=== PATIENT | female | born 1995 | race Hispanic/Latino ===

== ENCOUNTER 2025-03-16 20:40 | Emergency (ER) | payer OTHER ==
[~2025-03-16] VITALS: Ht 162.6 cm; Wt 108.9 kg
--- NOTE | 2025-03-16 20:51 | NUR ---
UA CUP PROVIDED
--- NOTE | 2025-03-16 20:55 | NUR ---
UA COLLECTED AND SENT
--- NOTE | 2025-03-16 21:24 | NUR ---
REPORT TO MITUL DELCID
--- NOTE | 2025-03-16 21:27 | NUR ---
PT PLACED IN GOWN ORIENTED TO ROOM, CALL LIGHT WITHIN REACH
[2025-03-16 21:32] LABS: IMMATURE GRANULOCYTE ABSOLUTE 0.04 K/uL (0-1); NUCLEATED RED BLOOD CELLS 0.0 % (0.0-0.19); PLATELET COUNT (AUTO) 257 K/uL (130-400); RED BLOOD CELL COUNT(AUTO) 3.98 MIL/uL (4.00-5.50); RED CELL DISTRIBUTION WIDTH 12.8 % (11.0-15.5); WHITE BLOOD COUNT (AUTO) 8.8 K/uL (4.8-10.8)
[2025-03-16 21:41] LABS: CREATININE 0.6 mg/dL (0.5-1.0); GLOMERULAR FILTR. RATE CALC 125.0 mL/min (>90); GLUCOSE,RANDOM 106.0 mg/dL (70-105); SODIUM SERUM 136.0 mmol/L (136-145); UREA NITROGEN, BLOOD 9.0 mg/dL (7-18)
--- NOTE | 2025-03-16 21:50 | ERN ---
ED Note History of Present Illness Stated Complaint: ABSCESS Chief Complaint: Abscess Time Seen by MD: 20:49 Dictation: This is a 29-year-old morbidly obese female who presented to the emergency room complaining of a boil on her vulva on the right side. She stated that she began noticing this 2 days ago and today she began experiencing severe pain after the boil popped. No fever chills or rigors. No known history of diabetes. Temperature 98.5 pulse 79 respirations 20 blood pressure 124/70 with a pulse oximetry of 100% on room air BMI 41 Allergies: Coded Allergies: No Known Allergies (Unverified Allergy, Unknown, 03/16/25) Home Meds Active Scripts Clindamycin HCl (Clindamycin HCl) 300 Mg Capsule, 1 CAP PO TID for 10 Days, #30 CAP 0 Refills Prov:PATRICIA AGUILAR MD 03/16/25 Past Medical History Past Medical History: No Pertinent History Surgical History: Appendectomy, BTL Family History: Negative Social History: Negative LMP: Feb 20, 2025 RN Note Reviewed/Agreed w/PFSH: Yes Review of System Dictation Constitutional: Negative for fever,chills, and weight loss Eyes: Negative for injury, pain,redness, and discharge ENT: Negative for injury,pain or swelling Cardiovascular: Negative for chest pain, palpitations, and edema Respiratory: Negative for shortness of breath, cough, and wheezing, Abdomen/GI: Negative for abdominal pain, nausea, vomiting, diarrhea, and constipation Back: Negative for injury and pain : Negative for injury, bleeding and discharge positive for a boil on the right side of the vulva on labia majora with the drainage and bleeding MS/Extremity: Negative for injury and deformity Skin: Negative for rash, and discoloration Neuro: Negative for headache, weakness, numbness, tingling, and seizure Psych: Negative for suicide ideation, homicidal ideation, and hallucinations Initial Vital Sign VS Vital Signs Date Time Temp Pulse Resp B/P (MAP) Pulse Ox O2 Delivery O2 Flow Rate FiO2 03/16/25 20:48 98.4 79 20 124/70 100 Room Air 03/16/25 21:38 0 21 Physical Exam Dictation General: awake, alert, NAD morbidly obese Head/Face: Normocephalic, atraumatic Eyes: PERRL, EOMI, vision at baseline ENT: oral cavity clear, TMs clear, no signs of infection Neck: Trachea midline, supple, no nuchal rigidity Cardiovascular: RRR, normal S1/S2, No MRGs, no JVD Respiratory: CTAB, no respiratory distress, No rales or wheezes Abdomen: Soft, non-tender, non-distended, normal bowel sounds, no guarding or rebound. Skin: Warm, dry, normal turgor, no rash -normal genitalia and inferior border of the labia major on the right side 2 cm by 3 cm area that has erupted with small amount of bleeding. After repositioning the patient, moderate induration was noted.. This is a small area in the center where it has popped and began draining. I did not appreciate any purple area described by triage nurse MS/Extremity: Pulses equal, no cyanosis, neurovascular intact, FROM Neuro: COAx4, GCS 15, strength 5/5, CN 2-12 intact, normal cerebellar exam, normal gait, Psych: Normal behavior, mood, and affect normal Extremities-trace edema without any palpable cords, Homans sign is negative Results (Laboratory/Radiology) Laboratory/Radiology Laboratory Tests Test 03/16/25 20:55 03/16/25 21:16 Urine HCG, Qualitative NEGATIVE (NEGATIVE) White Blood Count 8.8 K/uL (4.8-10.8) Red Blood Count 3.98 MIL/uL (4.00-5.50) L Hemoglobin 11.7 g/dL (12.0-16.0) L Hematocrit 35.5 % (36-48) L Mean Corpuscular Volume 89.2 fL (79-99) Mean Corpuscular Hemoglobin 29.4 pg (27.0-33.0) Mean Corpuscular Hemoglobin Concent 33.0 g/dL (32.0-36.0) Red Cell Distribution Width 12.8 % (11.0-15.5) Platelet Count 257 K/uL (130-400) Mean Platelet Volume 10.8 fL (7.5-10.5) H Immature Granulocyte % (Auto) 0.5 % (0-1) Neutrophils (%) (Auto) 64.3 % (40.0-77.0) Lymphocytes (%) (Auto) 27.4 % (21.0-51.0) Monocytes (%) (Auto) 4.8 % (3.0-13.0) Eosinophils (%) (Auto) 2.5 % (0.0-8.0) Basophils (%) (Auto) 0.5 % (0.0-5.0) Neutrophils # (Auto) 5.7 K/uL (1.8-7.7) Lymphocytes # (Auto) 2.4 K/uL (1.0-4.8) Monocytes # (Auto) 0.4 K/uL (0.1-1.0) Eosinophils # (Auto) 0.22 K/uL (0.00-0.70) Basophils # (Auto) 0.04 K/uL (0.00-0.20) Absolute Immature Granulocyte (auto 0.04 K/uL (0-1) Nucleated Red Blood Cells 0.0 % (0.0-0.19) Sodium Level 136 mmol/L (136-145) Potassium Level 4.0 mmol/L (3.5-5.1) Chloride Level 100 mmol/L (101-111) L Carbon Dioxide Level 30 mmol/L (21-32) Blood Urea Nitrogen 9 mg/dL (7-18) Creatinine 0.6 mg/dL (0.5-1.0) Glomerular Filtration Rate Calc 125 mL/min (>90) Random Glucose 106 mg/dL (70-105) H Total Calcium 8.7 mg/dL (8.5-10.1) Labs Reviewed?: Yes ED Course ED Course Orders Procedure Category Date Status Time ,Urine Test LAB 03/16/25 Complete 20:54 Cbc With Differential LAB 03/16/25 Complete 20:54 Basic Metabolic Panel LAB 03/16/25 Complete 20:54 Ketorolac PHA 03/16/25 Complete Tromethamine 30mg/Ml 22:00 Clindamycin 150mg Cap PHA 03/16/25 Complete (Cleocin 150mg Cap 22:00 Lidocaine Hcl 1% 20ml PHA 03/16/25 Complete Vial (Lidocaine Hc 22:20 Current Medications Medications (Trade) Dose Ordered Sig/Kelsey Route PRN Reason Start Time Stop Time Status Last Admin Dose Admin Clindamycin HCl (Cleocin 150mg Cap) 300 mg ONCE ONCE PO 03/16/25 22:00 03/16/25 22:01 DC 03/16/25 22:11 Ketorolac Tromethamine (toRADol) 30 mg ONCE ONCE IVP 03/16/25 22:00 03/16/25 22:01 DC 03/16/25 22:11 Lidocaine HCl (Lidocaine HCl 1% 20ml Vial) 20 ml STK-MED ONCE .ROUTE 03/16/25 22:20 03/16/25 22:20 DC Vital Signs Date Time Temp Pulse Resp B/P (MAP) Pulse Ox O2 Delivery O2 Flow Rate FiO2 03/16/25 21:38 78 18 120/68 99 Room Air* 0 21 03/16/25 20:48 98.4 79 20 124/70 100 Room Air We will perform diagnostic labs, administer medications according to the patient's complaint. Once the results are available, will review and personally interpreted the labs to rule out any acute life-threatening emergency the trach require immediate intervention and treatment. I will then re-evaluate the patient after treatment and diagnostic exams have return to determine whether the patient requires any further testing, can safely be discharged home or need further admission to hospital for additional treatment and evaluation. Medical Decision Making MDM Differential diagnosis: Vulvar abscess, boil, furuncle, carbuncle, Bartholin cyst This is a 29-year-old morbidly obese female who presented to the emergency room complaining of a boil on her vulva on the right side. She stated that she began noticing this 2 days ago and today she began experiencing severe pain after the boil popped. No fever chills or rigors. No known history of diabetes. Temperature 98.5 pulse 79 respirations 20 blood pressure 124/70 with a pulse oximetry of 100% on room air BMI 41 9:35 p.m. labs reviewed CBC is with a normal limits except for a hemoglobin of 11.7. 9:47 p.m. urine test is negative and BNP 7 is with a normal limits. 11:00 p.m. patient tolerated the incision and drainage very well with the med in the induration was almost resolved. The pain was also significantly improved. A dose of antibiotic given and she will be discharged to home with outpatient antibiotic therapy. Rationale: Tests considered and ordered secondary to shared decision making include: Previous outside records reviewed: Old ER visits. Risk of complication and/or morbidity or mortality of patient management: None Medications-Per medication reconciliation Need for hospitalization: Patient does not meet criteria for hospitalization. Need for emergency major/minor surgery: No There are no social concerns with this patient. Prescription drug management Prescriptions will include symptomatic care Patient's prior external medical records from other ER visits were reviewed by me as indicated. Prior testing and results from previous visits were reviewed. Prior tests were taken into account with medical decision making and resource utilization, independent historian/historians were used to obtain complete medical history. I independently interpreted the test that were performed, results were reviewed by me and considered findings on radiology if ordered. Medical management and examination interpretation discussions were had by me with other qualified healthcare professionals as indicated for the patient's care. Procedure Blade Size: 11 I & D Procedure: no betadine prepno sterile drapes appliedno sterile dressing applied Progress PROCEDURE NOTE- Incision drainage of vulvar abscess- LOCATION-lower abscess on the right.-inferior area of labia majora. PERFORMING PHYSICIAN-Dr. Aguilar ANESTHESIA-1% lidocaine solution for local anesthesia. Toradol-30 mg IM INDICATION- 2 x 3 cm abscess with induration palpable fluctuance Informed consent--informed consent was obtained from the patient. Risks benefits alternatives and outcomes were discussed (inadequate anesthesia, pain during and after the procedure, bleeding, recurrence of the abscess, septic thrombophlebitis, necrotizing fasciitis, fistula formation, damage to the nerves or vessels and scarring. and the fact that the abscess size is very large with fluctuance I recommended incision and drainage as the 1st step. Patient verbalized full understanding and her was also present and they wished to proceed. PROCEDURE- after obtaining an informed consent universal precautions were used. The area was prepped with a chlorhexidine solution extensively and sterile towels were placed. Local anesthetic was used to infiltrate around and under the tissue surrounding the abscess. A linear incision was made at the most protruding part with a 11. Blade into the abscess. The purulent material was allowed to drain from the abscess and gentle probing of the abscess was done with a curved hemostat to break up the loculations. Manually I have attempted to express the purulent dark bloody material from the abscess for the next 10 minutes with gentle massaging. wound was dressed with a sterile gauze and tape. COMPLICATIONS-none immediate. Patient tolerated the procedure well and they abscess size was markedly reduced after the drainage. POST PROCEDURE INSTRUCTIONS--keep the wound clean and dry and cover with the absorbent material Change the overlying dressing once a day Pain medications OTC as directed. Problem List Problem List: (1) Vulvar abscess (2) Morbid obesity DX & DISP Disposition: Discharge Departure Impression: Primary Impression: Vulvar abscess Additional Impression: Morbid obesity Condition: Stable Scripts Clindamycin HCl (Clindamycin HCl) 300 Mg Capsule 1 CAP PO TID for 10 Days, #30 CAP 0 Refills Prov: PATRICIA AGUILAR MD 03/16/25 Additional Instructions: Patient and the caregiver have been informed of all the diagnostic tests and the imaging conducted during the today's visit to the emergency room and has verbalized understanding of the results I have personally reviewed and interpreted all diagnostic exams performed here in the ER today as well as the vital signs documented by the nursing staff. The patient is now being discharged to home and should follow up with the primary care physician or the specialist as directed by the ER staff. Referrals: SUNIL OLVERA III (PCP) PATRICIA AGUILAR MD Mar 16, 2025 21:50
[2025-03-16] MEDS ORDERED: CLIN-141 PO (21:59)
[2025-03-16] MEDS: CLINDAMYCIN 150 MG CAP PO ONE (22:11)
[2025-03-16] MEDS: LIDOCAINE HCL 1% 20 ML VIAL ONE (23:07)
[2025-03-16 23:09] VITALS: BP 124/71; PULSE 72; RESP 18; TEMP 98.5; O2SAT 100
== END 2025-03-16 23:19 | disposition home or self-care (01) ==
LOC: EDH 20:40
DX: N76.4 Abscess of vulva (principal); E66.01 Morbid (severe) obesity due to excess calories; Z68.41 Body mass index [BMI] 40.0-44.9, adult; Z90.49 Acquired absence of other specified parts of digestive tract; Z98.51 Tubal ligation status
CPT/HCPCS: 99284; 56405; 96374; 80048; 85025; 81025; 36415; J1885